=== PATIENT | female | born 1950 | race Caucasian/White ===

== ENCOUNTER 2016-12-05 19:15 | Emergency (ER) | payer MEDICARE, MEDICAID ==
[2010-11-02 08:18] VITALS: BMI 37.1
[2017-01-02] MEDS ORDERED: FUROSEMIDE40 MG PO (10:15)
[2017-01-02] MEDS ORDERED: SYSTANE 0.3-0.4%5 ML EACH EYE (10:16)
[2017-01-02] MEDS ORDERED: PRENATAL COMPLE1 TAB PO (10:16)
[2017-01-02] MEDS ORDERED: ZANAFLEX4 MG PO (10:17)
[2017-01-02] MEDS ORDERED: DESERYL100 MG PO (10:17)
[2017-01-02] MEDS ORDERED: IBUPROFEN800 MG PO (10:18)
[2017-01-02] MEDS ORDERED: HYDROCODON-ACE1 EAC7 PO (10:18)
[2017-01-03 07:25] VITALS: BMI 30.3
== END 2016-12-06 02:37 | disposition home or self-care (01) ==
LOC: D.ER 19:15
DX: G44.209 Tension-type headache, unspecified, not intractable (principal); M62.838 Other muscle spasm; M25.512 Pain in left shoulder; W19.XXXA Unspecified fall, initial encounter; Y93.89 Activity, other specified; Y92.89 Other specified places as the place of occurrence of the external cause

== ENCOUNTER → 2016-12-07 16:23 | Outpatient (CLI) | payer MEDICARE, MEDICAID ==
[2010-11-02 08:18] VITALS: BMI 37.1
[~2016-12-07 16:23] MED LIST: DESERYL100 MG PO; FUROSEMIDE40 MG PO; HYDROCODON-ACE1 EAC7 PO; HYDROCODONE-APA1 TAB PO; IBUPROFEN800 MG PO; PRENATAL COMPLE1 TAB PO; SYSTANE 0.3-0.4%5 ML EACH EYE; TRAZODONE HCL50 MG PO; ZANAFLEX2 M1 PO; ZANAFLEX4 MG PO
[2017-01-03 07:25] VITALS: BMI 30.3
== END | disposition home or self-care (01) ==
LOC: D.MRI 16:23
DX: M75.102 Unspecified rotator cuff tear or rupture of left shoulder, not specified as traumatic (principal)

== ENCOUNTER 2017-01-03 06:52 | Day surgery (SDC) | payer MEDICARE, MEDICAID ==
[~2017-01-03] VITALS: Ht 154.9 cm; Wt 72.6 kg
[~2017-01-03 06:52] MED LIST changes: -HYDROCODONE-APA1 TAB PO; -TRAZODONE HCL50 MG PO; -ZANAFLEX2 M1 PO
[2017-01-03] MEDS ORDERED: TRAZODONE HCL50 MG PO (07:20)
[2017-01-03] MEDS ORDERED: ZANAFLEX2 M1 PO (07:23)
[2017-01-03 07:25] VITALS: Ht 154.9 cm; Wt 72.6 kg
[2017-01-03 08:51] LABS: HEMATOCRIT 36.2 % (36.0-48.0); MCH 30.9 pg (26.0-34.0); MCHC 33.1 g/dL (31.0-37.0); MCV 93.3 fL (80.0-100.0); MEAN PLATELET VOLUME 10.7 fL (7.4-10.4); RBC 3.88 10x6/uL (4.00-5.40); RDW 14.1 % (11.5-14.5); WBC 10.3 10x3/uL (4.8-10.8)
[2017-01-03 09:18] LABS: ANION GAP 12.6 mmol/L (8-16); CALCIUM 8.8 mg/dL (8.5-10.1); CARBON DIOXIDE 29.1 mmol/L (21.0-32.0); CREATININE - SERUM 0.9 mg/dL (0.6-1.3); POTASSIUM - SERUM 3.7 mmol/L (3.5-5.1)
[2017-01-03] MEDS ORDERED: HYDROCODONE-APA1 TAB PO (10:03)
--- NOTE | 2017-01-03 11:12 | NUR ---
1110 FULL LIQUID DIET SERVRED
--- NOTE | 2017-01-03 12:48 | NUR ---
0270 DISCHARGE INSTRUCTIONS REVIEWED WITH PATIENT AND PENDELUM EXERCISES DEMONSTRATED; VERBALIZED UNDERSTANDING
--- NOTE | 2017-01-18 11:39 | OP ---
PATIENT NAME: SMITA SILVESTRE MEDICAL RECORD: [id number] :46 LOCATION:[facility] ADMISSION DATE: SURGEON: IVELISSE ROME, ARABELLA JO DATE OF OPERATION: 01/03/2017 PREOPERATIVE DIAGNOSES: 1. Rotator cuff tear of the left shoulder. 2. Impingement syndrome of the left shoulder. 3. 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 POSTOPERATIVE DIAGNOSES: 1. Rotator cuff tear of the left shoulder. 2. Impingement syndrome of the left shoulder. 3. 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 PROCEDURES: 1. Arthroscopic rotator cuff repair. 2. Arthroscopic distal clavicle excision under separate incision -- 1 cm. 3. Arthroscopic subacromial decompression with acromioplasty and bursectomy. SURGEON: Arabella Oviedo MD ANESTHESIA: General. INTRAOPERATIVE COMPLICATIONS: None. SUMMARY OF PATHOLOGIC FINDINGS: Consistent with the preoperative MRI. The patient had full thickness rotator cuff tearing along with impingement with excoriation of the coracoacromial ligament as well as a grade IV chondromalacia of the distal clavicle. OPERATIVE SUMMARY IN DETAIL: After obtaining the appropriate preoperative orthopedic surgery consent as well as anesthetic consultation, evaluation and clearance, the patient was brought to the operating room and placed on the operating table in supine position. After general laryngeal mask was administered, the patient was placed in a right lateral decubitus position. All pressure points were well padded to include down leg peroneal pad as well as axillary roll. The patient was held firmly to the operating room table using the vacuum pack suction system. Left upper extremity and shoulder were then prepped and draped in a routine sterile fashion. The arm was held in the [employer] traction boom at 30 degrees of forward flexion, 30 degrees of abduction, 10 pounds of traction laterally. Arthroscopy was established in the glenohumeral joint from a posterior portal. Anterior portal was established in the anterior safe interval. Diagnostic arthroscopy did reveal the above findings. A transarthroscopic rotator cuff tear portal was created through which a debridement of the rotator cuff was done. The rotator cuff tear was done and then the footprint supraspinatus tendon was decorticated for later reapproximation. Having completed this, arthroscopy was established in the subacromial space. [place] tissue ablation system was utilized to denude the undersurface of the acromion of all soft tissue elements and released the coracoacromial ligament. A 5-0 barrel bur was used to perform acromioplasty at the level of acromioclavicular joint. Having completed this, through a separate arthroscopic anterior incision under direct arthroscopic fixation distal clavicle was excised for 1 cm. Having completed this, attention was returned to the rotator cuff. Further decortication was carried out to reattach the OPERATIVE REPORT [id number] SMITA SILVESTRE supraspinatus tendinous footprint. A single #2 FiberTape was placed in a mattress style fashion and it was anchored using a 5.5 SwiveLock from [employer]. Having completed this, arthroscopy portals were closed in routine interrupted fashion. Sterile dressings were applied. The patient was awakened, taken to recovery room in stable condition. All final needle and sponge counts were correct. TRANSINT:[id number] Voice Confirmation ID: [id number] DOCUMENT ID: [id number] IVELISSE ROME, ARABELLA JO at 1139 CC: [id number] DICTATION DATE: 01/17/172042 LAWYER CRIMINAL: 01/18/17 0344 [facility] 01/03/17 [facility] [address] [place] [address]
== END 2017-01-03 12:00 | disposition home or self-care (01) ==
LOC: D.OPS 06:52 → D.PAN 09:15 → D.OPS 10:45
PROVIDERS: Anesthesiology
DX: M75.100 Unspecified rotator cuff tear or rupture of unspecified shoulder, not specified as traumatic (principal); M75.42 Impingement syndrome of left shoulder; M25.512 Pain in left shoulder; Z01.812 Encounter for preprocedural laboratory examination